=== PATIENT | male | born 1995 | race American Indian/Alaskan Native ===

== ENCOUNTER 2018-09-20 07:58 | Emergency (ER) | payer BC ==
[~2018-09-20] VITALS: Ht 165.1 cm; Wt 50.8 kg
[2018-09-20 08:02] VITALS: BP 144/73; TEMP 97
[2018-09-20 09:20] VITALS: PULSE 80
== END 2018-09-20 09:21 | disposition home or self-care (01) ==
LOC: COL.ER 07:58
DX: M25.512 Pain in left shoulder (principal); F90.9 Attention-deficit hyperactivity disorder, unspecified type; F12.90 Cannabis use, unspecified, uncomplicated